=== PATIENT | male | born 1945 | race Two or more races ===

== ENCOUNTER 2020-10-30 09:51 | Emergency (ER) | payer OTHER ==
[~2020-10-30] VITALS: Ht 157.5 cm; Wt 61.2 kg
[~2020-10-30 09:51] MED LIST: ANTIVERT25 M1 PO; AVALIDE; ISOSORBIDE; LIPOFLAVOVIT CA1 TAB PO; PLAVIX75 MG PO; SIMVASTATIN
[2020-10-30] MEDS ORDERED: SIMVASTATIN20 MG PO (11:20)
[2020-10-30] MEDS ORDERED: FENOFIBRATE160 MG PO (11:20)
[2020-10-30] MEDS ORDERED: CLOPIDOGREL BIS75 MG PO (11:20)
[2020-10-30] MEDS ORDERED: AMLODIPINE BESYL5 MG PO (11:20)
[2020-10-30] MEDS ORDERED: ISOSORBIDE DINI30 MG PO (11:20)
[2020-10-30] MEDS ORDERED: DORZOLAMIDE HCL10 ML OP (11:21)
[2020-10-30] MEDS ORDERED: ST. JOSEPH ASPI81 M2 PO (11:21)
== END 2020-10-30 17:01 | disposition home or self-care (01) ==
LOC: ER 09:51
DX: N39.0 Urinary tract infection, site not specified (principal)